=== PATIENT | female | born 1965 | race Two or more races ===

== ENCOUNTER 2022-03-27 13:38 | Emergency (ER) | payer MEDICAID ==
[~2022-03-27] VITALS: Ht 165.1 cm; Wt 62.0 kg
[2022-03-27 14:16] VITALS: BP 144/100
[2022-03-27] MEDS ORDERED: HYDROcodone-ACET 5/325MG TAB PO ONE (16:15)
== END 2022-03-27 16:34 | disposition left against medical advice (07) ==
LOC: ER 13:38
DX: B02.9 Zoster without complications (principal); Z88.0 Allergy status to penicillin; Z88.5 Allergy status to narcotic agent

== ENCOUNTER 2023-04-13 09:48 | Emergency (ER) | payer MEDICAID ==
[~2023-04-13] VITALS: Ht 165.1 cm; Wt 59.0 kg
[2023-04-13 10:54] LABS: Basophils # (auto) 0.1 10 ^3/uL (0-0.2); Basophils % (auto) 0.8 % (0.0-2.0); Eosinophils # (auto) 0.4 10 ^3/uL (0-0.8); Hemoglobin 14.6 g/dL (12.2-16.2); Lymphocytes # (auto) 0.6 10 ^3/uL (0.4-5.4); Lymphocytes % (auto) 6.3 % (10.0-50.0); Mean Corpuscular Hemoglobin 29.4 pg (28.0-32.0); Mean Corpuscular Hgb Conc. 33.9 g/dL (32.0-36.0); Mean Corpuscular Volume 86.6 fL (80.0-100.0); Monocytes # (auto) 1.4 10 ^3/uL (0-1.3); Neutrophils % (auto) 73.9 % (37.0-80.0); Red Blood Cells 4.96 10^6/uL (4.0-5.20); White Blood Cell 9.5 10^3/uL (4.4-10.8)
[2023-04-13 11:11] LABS: Alanine Aminotransferase 14 U/L (7-40); Albumin 4.6 g/dL (3.2-4.8); Alkaline Phosphatase 100 U/L (46-116); Anion Gap 8 (5-15); Aspartate Aminotransferase 19 U/L (13-40); BUN/Creatinine Ratio 7.9 (10.0-20.0); Bilirubin, Total 0.9 mg/dL (0.2-1.0); Blood Urea Nitrogen 8 mg/dL (9-23); Carbon Dioxide 26 mmol/L (20-30); Chloride 106 mmol/L (98-107); Glucose 99 mg/dL (74-106); Lipase 56 U/L (12-53); Potassium 3.8 mmol/L (3.5-5.1); Sodium 140 mmol/L (136-145); Total Protein 7.5 g/dL (5.7-8.2)
[2023-04-13 12:26] VITALS: BP 144/88; PULSE 119; RESP 18; TEMP 100.9; O2SAT 98
[2023-04-13] MEDS: methylPREDNISolone SOD SUCC 125 MG/2 ML VL IV ONE (12:26)
[2023-04-13 13:16] LABS: Rapid Influenza B Negative (Negative)
[2023-04-13 13:18] LABS: COVID19 ANTIGEN SOFIA FIA NEGATIVE (NEGATIVE); Rapid Influenza A Positive (Negative)
== END 2023-04-13 15:02 | disposition left against medical advice (07) ==
LOC: ER 09:48
DX: R06.03 Acute respiratory distress (principal); B34.9 Viral infection, unspecified; R10.13 Epigastric pain; Z88.0 Allergy status to penicillin; Z88.5 Allergy status to narcotic agent; Z20.822 Contact with and (suspected) exposure to COVID-19
CPT/HCPCS: 36415; 71045; 80053; 83690; 85025; 87426; 87804; 93005; 96374; 99291; J2930